=== PATIENT | female | born 2000 | race Two or more races ===

== ENCOUNTER 2023-09-07 04:34 | Emergency (ER) | payer MEDICAID, OTHER ==
[~2023-09-07] VITALS: Ht 160 cm; Wt 54.0 kg
[2023-09-07 04:52] LABS: Urine Bacteria None Seen /hpf (None Seen)
[2023-09-07 04:56] LABS: Urine Blood 3+ /uL (Negative); Urine Clarity Clear (Clear); Urine Color STRAW (Yellow); Urine Protein, UAD Negative (Negative); Urine Specific Gravity 1.008 (1.001-1.035); Urine Urobilinogen Normal (Negative); Urine WBC 2 /hpf (0 - 5); Urine pH 6.5 (5.0-9.0)
[2023-09-07 07:16] LABS: Basophils # (auto) 0.1 10 ^3/uL (0-0.2); Basophils % (auto) 0.5 % (0.0-2.0); Eosinophils # (auto) 0.2 10 ^3/uL (0-0.8); Eosinophils % (auto) 1.7 % (0.0-7.0); Hematocrit 33.6 % (36.0-46.0); Hemoglobin 11.7 g/dL (12.2-16.2); Lymphocytes # (auto) 1.9 10 ^3/uL (0.4-5.4); Lymphocytes % (auto) 15.2 % (10.0-50.0); Mean Corpuscular Hemoglobin 29.1 pg (28.0-32.0); Mean Corpuscular Hgb Conc. 34.9 g/dL (32.0-36.0); Mean Corpuscular Volume 83.2 fL (80.0-100.0); Monocytes # (auto) 0.8 10 ^3/uL (0-1.3); Monocytes % (auto) 6.7 % (0.0-12.0); Neutrophils # (auto) 9.4 10 ^3/uL (1.6-8.6); Neutrophils % (auto) 75.9 % (37.0-80.0); Nucleated Red Blood Cells % 0.2 %; Red Blood Cells 4.03 10^6/uL (4.0-5.20); Red Cell Distribution Width 12.1 % (11.8-14.3); White Blood Cell 12.4 10^3/uL (4.4-10.8)
[2023-09-07 08:58] VITALS: BP 116/56; PULSE 70; RESP 16; TEMP 98.5; O2SAT 100
== END 2023-09-07 09:01 | disposition home or self-care (01) ==
LOC: ER 04:34
DX: O20.0 Threatened abortion (principal); R10.2 Pelvic and perineal pain; O20.8 Other hemorrhage in early pregnancy; Z3A.08 8 weeks gestation of pregnancy
CPT/HCPCS: 36415; 76801; 81001; 81025; 84702; 85025; 86900; 86901